=== PATIENT | female | born 1955 | race Caucasian/White ===

== ENCOUNTER → 2022-10-08 13:53 | Outpatient (BNVA) | payer MEDICARE, SELFPAY | PROVIDERS: PCP Family Medicine; Visit Provider Internal Medicine | DX: E03.8 Other specified hypothyroidism (principal); E06.3 Autoimmune thyroiditis; E04.1 Nontoxic single thyroid nodule | CPT/HCPCS: 99204 ==

== ENCOUNTER 2022-10-12 08:10 | Outpatient (CLI) | payer MEDICARE, SELFPAY ==
[2022-10-12 09:33] LABS: Thyroid Stimulating Hormone 84.02 uIU/mL (0.27-4.20)
[2022-10-13 11:30] LABS: T3 Total <25 ng/dL (76-181)
== END 2022-10-12 08:11 | disposition home or self-care (01) ==
LOC: LAB 08:13
PROVIDERS: PCP Family Medicine; Visit Provider Internal Medicine
DX: E03.8 Other specified hypothyroidism (principal); E04.1 Nontoxic single thyroid nodule; E06.3 Autoimmune thyroiditis
CPT/HCPCS: 36415; 84439; 84443; 84480

== ENCOUNTER 2022-10-26 11:46 | Outpatient (CLI) | payer MEDICARE, SELFPAY ==
[2022-10-26 13:27] LABS: Free T4 Free Thyroxine 1.26 ng/dL (0.82-1.77)
== END 2022-10-26 11:47 | disposition home or self-care (01) ==
PROVIDERS: Internal Medicine; PCP Family Medicine
DX: E03.8 Other specified hypothyroidism (principal); E04.1 Nontoxic single thyroid nodule; E06.3 Autoimmune thyroiditis
CPT/HCPCS: 36415; 84439

== ENCOUNTER → 2022-12-10 10:02 | Outpatient (BNVA) | payer MEDICARE, SELFPAY | PROVIDERS: PCP Family Medicine; Visit Provider Internal Medicine | DX: E03.8 Other specified hypothyroidism (principal); E06.3 Autoimmune thyroiditis; E04.1 Nontoxic single thyroid nodule; Z79.890 Hormone replacement therapy | CPT/HCPCS: 36415; 84439; 84443; 99214 ==

== ENCOUNTER → 2023-01-29 09:41 | Outpatient (BNVA) | payer MEDICARE, SELFPAY | PROVIDERS: PCP Family Medicine; Visit Provider Podiatrist Foot & Ankle Surgery | DX: M20.41 Other hammer toe(s) (acquired), right foot; M20.42 Other hammer toe(s) (acquired), left foot; M76.822 Posterior tibial tendinitis, left leg | CPT/HCPCS: 73630; 76536; 99204 ==

== ENCOUNTER → 2023-02-16 13:42 | Outpatient (BNVA) | payer MEDICARE, SELFPAY | PROVIDERS: PCP Family Medicine; Visit Provider Internal Medicine | DX: E03.8 Other specified hypothyroidism (principal); E06.3 Autoimmune thyroiditis; E04.1 Nontoxic single thyroid nodule; Z79.890 Hormone replacement therapy | CPT/HCPCS: 84439; 84443; 99214 ==

== ENCOUNTER 2023-03-16 10:17 | Observation (INO) | payer MEDICARE, SELFPAY ==
[2023-03-12 11:19] LABS: Basophils # 0.1 10^3/uL (0.0-0.1); Basophils % 1.3 %; Eosinophils # 0.2 10^3/uL (0.0-0.8); Eosinophils % 3.8 %; Hematocrit 41.9 % (36-47); Lymphocytes # 1.8 10^3/uL (0.8-4.8); Lymphocytes % 40.5 %; Mean Corpuscular HGB Conc 34.1 g/dL (30-55); Mean Corpuscular Hemoglobin 30.8 pg (27-33); Mean Corpuscular Volume 90.1 fl (85-98); Mean Platelet Volume 8.7 fL (7.4-10.4); Monocytes # 0.6 10^3/uL (0.2-0.9); Monocytes % 12.7 %; Neutrophils # 1.87 10^3/uL (1.8-7.7); Neutrophils % 41.7 %; Nucleated Red Blood Cells % 0 %; Platelet Count 333 10^3/cmm (157-399); Red Blood Count 4.65 10^6/uL (3.85-5.65); Red Cell Distribution Width 12.3 % (12.1-15.1); White Blood Count 4.49 10^3/uL (3.29-11.43)
--- NOTE | 2023-03-12 11:39 | ANES.PREANE2 ---
Pre-Anesthetic Assessment Height/Weight: Height 1.68 m Preop Diagnosis: Cystocele, rectocele, stress incontinence Operation Date: 03/16/23 09:45 Proposed Procedures p Anterior and posterior colporrhaphy 51308, Midurethral sling 96392, Sacrospinous fixation 29640,N81.10,N81.6,N39.3(Not Applicable) - MD nory Thakkar Posterior Repair(Not Applicable) - Abhijit Kim MD s Sling Single Incision Midurethral Sling(Not Applicable) - Abhijit Kim MD s Sacrospinous Ligament Suspension Sacrospinous Fixation(Not Applicable) - Abhijit Kim MD Familial anesthetic complications: PONV Was Beta Mendez taken within 24 hours: N/A Was Clonidine taken within 24 hours: N/A Social Alcohol and No tobacco Exam alert, oriented x 3, clear to auscultation bilaterally and regular rate & rhythm Airway Submandibular: within normal limits Cervical ROM: within normal limits Mallampati: Class II Dentition: chipped Metabolic Thyroid Disease Anesthetic Plan ASA status: 2 Anesthesia: General Other: TIVA Medications/Allergies Home Medications Medication Instructions Recorded Confirmed Last Taken Type gabapentin 100 mg capsule 100 mg PO TID 02/05/23 03/12/23 03/12/23 History levothyroxine 100 mcg tablet 100 mcg PO DAILY #90 tabs 02/16/23 03/12/23 03/12/23 Rx venlafaxine 150 mg 150 mg PO DAILY 30 days #30 caps 03/04/23 03/12/23 03/12/23 Rx capsule,extended release 24 hr zolpidem 10 mg tablet 10 mg PO .at bed PRN insomnia 30 03/04/23 03/12/23 03/11/23 Rx days #30 tabs Allergies Allergy/AdvReac Type Severity Reaction Status Date / Time sulfas Allergy Unknown Unknown Uncoded 03/12/23 10:36 REPLACED BY [facility] Anesthesia Medical History Psychiatric care Family History Father Hyperlipidemia Grandmother Hyperlipidemia Heart disease Other Brain tumor Depression Denies family history of Colon cancer Ovarian cancer Prostate cancer Diabetes Breast cancer Hypertension Uterine cancer Thyroid condition Stroke Social History Smoking and tobacco status: former smoker Data Anesthesia 03/12/23 10:50 03/12/23 10:50 Short CBC 03/12/23 Range/Units 10:50 WBC 4.49 (3.29-11.43) 10^3/uL Hgb 14.30 (11.27-16.99) g/dL Hct 41.9 (36-47) % MCV 90.1 (85-98) fl Plt Count 333 (157-399) 10^3/cmm Neut % (Auto) 41.7 % Neut # (Auto) 1.87 (1.8-7.7) 10^3/uL Cardiac Studies: No Data to Display
[2023-03-12 11:44] LABS: Alanine Aminotransferase 13 U/L (0-33); Albumin Level 4.8 g/dL (3.5-5.2); Alkaline Phosphatase 85 U/L (35-105); Aspartate Amino Transferase 16 U/L (0-32); Blood Urea Nitrogen 11 mg/dL (8-23); Calcium 9.6 mg/dL (8.5-10.5); Carbon Dioxide 25 mmol/L (22-29); Chloride 103 mmol/L (98-107); Globulin 2.3 g/dL (1.3-4.6); Glomerular Filtration Rate 99.7 mL/min (90-130); Glucose 107 mg/dL (65-115); Osmolality Calculated 286 mOsm/kg (285-295); Sodium 138 mmol/L (136-145); Total Bilirubin 0.7 mg/dL (0.15-1.2); Total Protein 7.1 g/dL (6.6-8.7)
[2023-03-12 11:46] LABS: Bilirubin Urine Neg (Negative); Blood Urine Neg (Negative); Glucose Urine UA Norm (Normal); Ketones Urine Negative (Negative); Nitrate Urine Negative (Negative); Protein Urine Neg (Negative); Urine Appearance Clear (CLEAR); Urine Color Yellow (Yellow); Urobilinogen Urine Norm (Negative); pH Urine 6 (5-7)
[2023-03-12 11:47] LABS: Add Urine Culture? No; Add Urine Microscopic? YES; Bacteria Urine TRACE /hpf; Leukocyte Esterase Urine Trace (Negative); RBC Urine 0-4 /hpf (0-2); Squamous Epithelial Cell Urine 0-4 /hpf (0-5); WBC Urine 0-4 /hpf (0-5)
[2023-03-16] VITALS (20 sets, daily range): BP systolic 97–150; BP diastolic 7–84; PULSE 54–95; RESP 7–20; TEMP 36.1–36.9; O2SAT 93–100; BMI 32.3; BMI 27.8
[2023-03-16] MEDS: scopolamine 1.5 Patch 1 PATCH TRANSDERMA (06:14)
[2023-03-16] MEDS: sodium chloride 0.9% 1,000 ML 30 ML IV (06:14)
[2023-03-16] MEDS: vancomycin 1,000 MG in sodium chloride 0.9% 250 ML 250 MG IV (06:15)
[2023-03-16] MEDS: sodium chloride 0.9% 500 ML IV (06:16)
[2023-03-16] MEDS: famotidine 20 mg/2 mL INJ IVP (06:36)
[2023-03-16] MEDS: midazolam 1 mg/mL INJ 2 mL 2 MG IVP (06:45)
--- NOTE | 2023-03-16 06:56 | W.PM.OPSUD ---
Surgery/Procedure H&P Update DATE OF PROCEDURE: March 16, 2023 DATE H&P PERFORMED: 03/11/23 H&P UPDATE INFORMATION: I have reviewed H&P completed within last 30 days, I have examined patient prior to procedure and No changes to prior documentation PREOP DIAGNOSIS: Cystocele, rectocele, stress incontinence PLANNED PROCEDURE: Operation Date: 03/16/23 07:00 Proposed Procedures p Anterior and posterior colporrhaphy 21916, Midurethral sling 85215, Sacrospinous fixation 62244,N81.10,N81.6,N39.3(Not Applicable) - Abhijit Kim MD s Posterior Repair(Not Applicable) - Abhijit Kim MD s Sling Single Incision Midurethral Sling(Not Applicable) - Abhijit Kim MD s Sacrospinous Ligament Suspension Sacrospinous Fixation(Not Applicable) - Abhijit Kim MD
--- NOTE | 2023-03-16 07:01 | P.ANESUD_ITS ---
Pre-Anesthetic Update Pre-Anesthetic Assessment: Date of Surgery/Procedure: 03/16/23 Preop Afshan gnosis: Cystocele, rectocele, stress incontinence Proposed Procedure: Operation Date: 03/16/23 07:00 Proposed Procedures p Anterior and posterior colporrhaphy 17556, Midurethral sling 67070, Sacrospinous fixation 16035,N81.10,N81.6,N39.3(Not Applicable) - Abhijit Kim MD s Posterior Repair(Not Applicable) - Abhijit Kim MD s Sling Single Incision Midurethral Sling(Not Applicable) - Abhijit Kim MD s Sacrospinous Ligament Suspension Sacrospinous Fixation(Not Applicable) - Abhijit Kim MD Any changes to Pre-Anesthetic Assessment?: No Last Intake: Intake Last Liquid Date 03/15/23 Last Liquid Time 19:00 Last Solid Date 03/15/23 Last Solid Time 19:00 Vitals: Temperature 97 F L 03/16/23 05:55 Temperature Source Temporal Artery S can 03/16/23 05:55 Pulse Rate 95 03/16/23 05:55 Respiratory Rate 18 03/16/23 05:55 Blood Pressure 150/84 03/16/23 05:55 Blood Pressure Nancy n 106 03/16/23 05:55 Pulse Oximetry 95 03/16/23 05:55 Oxygen Delivery Me thod Room Air 03/16/23 06:07 Exam: Pre-Anes Outpt Exam: alert, oriented x 3, clear to auscultation bilaterally and regular rate & rhythm Cardiac Studies: No Data to Display
[2023-03-16] MEDS: lidocaine-epi 2% 20 mL INJ INJECTION (07:56)
--- NOTE | 2023-03-16 09:20 | PM.OP ---
Operative Report Date of procedure: March 16, 2023 Pre-op diagnosis: Cystocele, stress urinary incontinence Rectocele Procedure done: Anterior colporrhaphy augmented with allograft. Single incision mid urethral sling. Posterior colporrhaphy. Cystoscopy Specimens removed/disposition: None Surgeon: Abhijit Kim MD Estimated blood loss (mL): 75 IV fluids (mL): 1,200 Urine output (mL): 100 Findings: Cystocele and rectocele Procedure: After obtaining informed consent, the patient was taken to the operating room and placed in the supine position, given general anesthesia, and prepped and draped in sterile fashion. The abdomen, vulva and vagina were prepped and draped in a sterile manner. A time out procedure was performed. The anterior vaginal mucosa beneath the midurethra was infiltrated with 2% lidocaine with epinephrine. A vertical midline incision was made beneath the midurethra, nearly 1.5 cm length. Careful submucosal dissection was performed bilaterally up to the interior portion of the inferior pubic ramus. The insertion of adductor longus tendon on the patient?s pubic ramus was identified as reference land dolores. Palpated the notch along the internal edge of ischiopubic ramus where the adductor longus tendon and the inferior pubic ramus meet. The Altis single incision sling (SIS) was selected. Then the needle of the SIS inserted aiming at the location of this notch. One of the integrated self-fixating tips place onto the needle by sliding it over the end of the needle. The needle/sling assembly was inserted toward the location of identified reference notch making sure that the flat of the handle is perpendicular to the desired path. The needle was tracked along the posterior surface of the ischiopubic ramus until the midline dolores on the mesh is approximately at the midline position under the urethra. The needle was removed and the same was repeated on the contralateral side until the appropriate sling tension under the urethra was achieved ensuring that the mesh lays flat. The needle was removed and vaginal incision was closed in a running interlocking fashion with 2-0 Vicryl. The vaginal mucosa was then injected in the midline with normal saline. The vaginal mucosa was scored in the midline with the Bovie approximately 1 cm medial to the urethral meatus to 1 cm distal to the cervix. This vaginal mucosa was then undermined and then incised in the midline with the Metzenbaum scissors. The lateral aspects of the vaginal mucosa were then grasped with the Allis clamps and the vaginal mucosa was then dissected off the underlying fascia with the Metzenbaum scissors. Again, there was noted to be quite a bit of oozing at the incision, which was controlled with cautery. After adequate dissection was performed, bilaterally. A Coloplast dermis allograft modified at time of application to fit spacea, 3 x 3 cm piece . The allograft was placed in front of cystocele ready to be implanted facing the vagina mucosa. Suture is placed at distal end of graft and placed towards vaginal cuff. Final suture is placed on proximal portion of the graft to complete the placement overlying the bladder. Then Interrupted vertical mattress sutures of 0 Vicryl were used to elevate the cystocele superiorly. The excessive vaginal mucosa was then trimmed with the Metzenbaum scissors and the vaginal mucosa was then reapproximated in the running interlocking fashion with 2-0 Vicryl. A 2% lidocaine with epinephrine solution was infiltrated under the posterior vaginal mucosa midline and into the perineal body. A transverse incision was cut in the perineum. The posterior vaginal wall was opened vertically and midline up to the apex of the rectocele. The cut edges were held and splayed laterally with a series of Allis clamps. The open vaginal mucosa was then dissected laterally with a combination of sharp and blunt dissection, exposing the perirectal fascia. The perirectal fascia was then reapproximated with interrupted #2-0 Vicryl sutures to draw the lateral folds together and tuck the rectocele back. Deep interrupted sutures of #0 Vicryl were used to reapproximate the fibers of the levator ani muscles. The excess vaginal mucosa was trimmed. The posterior vaginal wall was closed with a running locked #0 Vicryl to the hymenal tags. The superficial perineal muscles were closed with running unlocked #0 Vicryl and the perineal skin was closed with running subcuticular #2-0 Vicryl. Then the Agarwal catheter was removed and cystoscope was inserted. The bladder was filled with sterile water. Complete evaluation of the bladder mucosa was performed noting no lacerations, dimpling, tears, bleeding of the mucosa or muscular layers. Both ureteral orifices were identified. Prompt excretion of urine from both ureteral orifices was noted. Cystoscope was withdrawn. The Agarwal catheter was replaced. Excellent hemostasis was obtained. Sponge, lap, needle, and instrument counts were correct times three. The patient was taken to the recovery room, awake and in stable condition.
[2023-03-16] MEDS: fentaNYL 50 mcg/mL INJ 2mL IVP (09:30)
--- NOTE | 2023-03-16 10:00 | ANE.PACU2 ---
Inpatient post-anesthesia follow up: Airway intact: Yes Vital signs: Temperature 98.2 F Pulse Rate 69 Respiratory Rate 9 Blood Pressure 140/77 Pulse Oximetry 99 Oxygen Delivery Me thod Room Air Oxygen Flow Rate 6 Fraction of Inspir ed Oxygen Hydration adequate: Yes Nausea and vomiting: No Pain level: 1 Mental status: Baseline
[2023-03-16] MEDS: HYDROcodone-acetaminophen 5-325 mg Tablet PO ×2 (10:39→16:23)
[2023-03-16] MEDS: venlafaxine ER (24HR) 150 mg Capsule PO (12:34)
[2023-03-16] MEDS: levothyroxine 100 mcg Tablet PO (12:34)
[2023-03-16] MEDS: dextrose 5%-lactated ringers 1,000 ML 125 ML IV (14:54)
[2023-03-16] MEDS: gabapentin 100 mg Capsule PO (15:09)
[2023-03-16] MEDS: ketorolac 30 mg/mL INJ IVP ×2 (16:22→22:28)
[2023-03-16] MEDS: docusate sodium 100 mg Capsule PO (16:23)
--- NOTE | 2023-03-16 17:53 | PC.NURSE ---
PATIENT'S O2 SAT DROPS DOWN INTO THE MID TO UPPER 80'S WHEN SHE FALLS AND ASLEEP, SO THIS BREAD ROOM HAND PLACED HER ON O2 AT 2 L PER NASAL CANNULA. PT STATES DOES HAVE A CPAP MACHINE AT HOME, SHE DID NOT BRING IT WITH HER SO TOLD THEM THAT WE MAY LEAVE HER ON O2 THIS EVENING
[2023-03-17] MEDS: ketorolac 30 mg/mL INJ IVP (04:12)
[2023-03-17 04:24] VITALS: BP 106/55; PULSE 71; RESP 16; TEMP 36.7; O2SAT 98
[2023-03-17 06:18] LABS: Hematocrit 32.8 % (36-47); Mean Corpuscular HGB Conc 32.9 g/dL (30-55); Mean Corpuscular Hemoglobin 30.5 pg (27-33); Mean Corpuscular Volume 92.7 fl (85-98); Mean Platelet Volume 8.9 fL (7.4-10.4); Platelet Count 246 10^3/cmm (157-399); Red Blood Count 3.54 10^6/uL (3.85-5.65); Red Cell Distribution Width 12.2 % (12.1-15.1); White Blood Count 6.09 10^3/uL (3.29-11.43)
--- NOTE | 2023-03-17 07:06 | PC.NURSE ---
patient voided 200ml at this time, bladder scan with 37ml left in bladder after void.
[2023-03-17] MEDS: docusate sodium 100 mg Capsule PO (09:36)
[2023-03-17] MEDS: ibuprofen 800 mg tablet PO (09:36)
[2023-03-17 09:39] VITALS: BP 94/51; PULSE 76; RESP 16; TEMP 36.9; O2SAT 95
--- NOTE | 2023-03-17 09:43 | P.DS_ITS ---
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 Sanchez 67-year-old female with a history of cystocele and rectocele. Admitted for planned anterior and posterior colporrhaphy single incision mid urethral sling. An anterior colporrhaphy augmented with allograft with single incision mid urethral sling and posterior colporrhaphy were performed without complications. Overnight observation was uneventful. Tolerating diet well. Ambulating without difficulty. PVR within normal limits. Counseled regarding pelvic rest for 6 weeks (no sex, no tampons, no vaginal douches). Return to the emergency room if any fever, increased bleeding or pain. Physical Exam Narrative: GA: Alert and oriented ?3. HEENT: WNL. Heart: Regular rate and rhythm. Lungs: Clear to auscultation bilaterally. Abdomen: Bowel sounds present, nontender BUSINESS SERVICES OFFICER: Spotting bleeding. Extremities: No edema, no cyanosis, no calves pain. Urinary Catheter Management: Agarwal: Cath Placed During This Visit: yes, but has since been removed by the nurse Reason for Continuing Indwelling Catheter: Decision to DC Catheter Urinary Catheter Date of Insertion: 03/16/23 Urinary Catheter Time of Insertion: 07:30 Date Urinary Catheter Removed: 03/17/23 Time Urinary Catheter Discontinued: 05:18 History History History 6 Term 2 0 Miscarriages/Ectopic 4 Living Children 2 Discharge Data Studies Completed and Pending Laboratory Results WBC 6.09 10^3/uL (3.29-11.43) 03/17/23 05:15 RBC 3.54 10^6/uL (3.85-5.65) L 03/17/23 05:15 Hgb 10.80 g/dL (11.27-16.99) L 03/17/23 05:15 Hct 32.8 % (36-47) L 03/17/23 05:15 MCV 92.7 fl (85-98) 03/17/23 05:15 MCH 30.5 pg (27-33) 03/17/23 05:15 MCHC 32.9 g/dL (30-55) 03/17/23 05:15 RDW 12.2 % (12.1-15.1) 03/17/23 05:15 Plt Count 246 10^3/cmm (157-399) 03/17/23 05:15 MPV 8.9 fL (7.4-10.4) 03/17/23 05:15 Neut % (Auto) 41.7 % 03/12/23 10:50 Lymph % (Auto) 40.5 % 03/12/23 10:50 [place] % (Auto) 12.7 % 03/12/23 10:50 Eos % (Auto) 3.8 % 03/12/23 10:50 Baso % (Auto) 1.3 % 03/12/23 10:50 Neut # (Auto) 1.87 10^3/uL (1.8-7.7) 03/12/23 10:50 Lymph # (Auto) 1.8 10^3/uL (0.8-4.8) 03/12/23 10:50 [place] # (Auto) 0.6 10^3/uL (0.2-0.9) 03/12/23 10:50 Eos # (Auto) 0.2 10^3/uL (0.0-0.8) 03/12/23 10:50 Baso # (Auto) 0.1 10^3/uL (0.0-0.1) 03/12/23 10:50 Nucleated RBC % (auto) 0 % 03/12/23 10:50 Nucleated RBCs # 0.0 /100WBC 03/12/23 10:50 Sodium 138 mmol/L (136-145) 03/12/23 10:50 Potassium 4.0 mmol/L (3.5-5.1) 03/12/23 10:50 Chloride 103 mmol/L (98-107) 03/12/23 10:50 Carbon Dioxide 25 mmol/L (22-29) 03/12/23 10:50 Anion Gap 14.0 (5-19) 03/12/23 10:50 BUN 11 mg/dL (8-23) 03/12/23 10:50 Creatinine 0.6 mg/dL (0.5-0.9) 03/12/23 10:50 GFR Calculation 99.7 mL/min (90-130) 03/12/23 10:50 Glucose 107 mg/dL (65-115) 03/12/23 10:50 Calculated Osmolality 286 mOsm/kg (285-295) 03/12/23 10:50 Calcium 9.6 mg/dL (8.5-10.5) 03/12/23 10:50 Total Bilirubin 0.7 mg/dL (0.15-1.2) 03/12/23 10:50 AST 16 U/L (0-32) 03/12/23 10:50 ALT 13 U/L (0-33) 03/12/23 10:50 Alkaline Phosphatase 85 U/L (35-105) 03/12/23 10:50 Total Protein 7.1 g/dL (6.6-8.7) 03/12/23 10:50 Albumin 4.8 g/dL (3.5-5.2) 03/12/23 10:50 Globulin 2.3 g/dL (1.3-4.6) 03/12/23 10:50 Urine Color Yellow (Yellow) 03/12/23 10:47 Urine Appearance Clear (CLEAR) 03/12/23 10:47 Urine pH 6 (5-7) 03/12/23 10:47 Ur Specific [place] 1.010 (1.005-1.030) 03/12/23 10:47 Urine Protein Neg (Negative) 03/12/23 10:47 Urine Glucose (UA) Norm (Normal) 03/12/23 10:47 Urine Ketones Negative (Negative) 03/12/23 10:47 Urine Blood Neg (Negative) 03/12/23 10:47 Urine Nitrate Negative (Negative) 03/12/23 10:47 Urine Bilirubin Neg (Negative) 03/12/23 10:47 Urine Urobilinogen Norm mg/dL (Negative) 03/12/23 10:47 Ur Leukocyte Esterase Trace (Negative) H 03/12/23 10:47 Urine RBC 0-4 /hpf (0-2) H 03/12/23 10:47 Urine WBC 0-4 /hpf (0-5) H 03/12/23 10:47 Ur Squamous Epith Cells 0-4 /hpf (0-5) H 03/12/23 10:47 Amorphous Sediment Not Reportable 03/12/23 10:47 Urine Bacteria Trace /hpf (NONE) 03/12/23 10:47 Blood Type A Positive 03/16/23 06:26 Rho(D) Type Positive 03/16/23 06:26 Antibody Screen Negative 03/16/23 06:26 Vitals Last Vital Signs Temp 98.5 F 03/17/23 09:39 Pulse 76 03/17/23 09:39 Resp 16 03/17/23 09:39 BP 94/51 03/17/23 09:39 Pulse Ox 95 03/17/23 09:39 O2 Del Method Room Air 03/17/23 09:39 O2 Flow Rate 2 03/17/23 04:24 Discharge Plan Discharge Patient Disposition: Home Condition: Stable Prescriptions: New hydrocodone-acetaminophen 5-325 mg tablet 1 tab PO Q4H PRN (Reason: pain) Qty: 20 0RF acetaminophen 325 mg capsule 325 mg PO Q4H PRN (Reason: fever or postoperative pain) Qty: 60 0RF ibuprofen 800 mg tablet 800 mg PO TID PRN (Reason: pain) Qty: 60 0RF Continued levothyroxine 100 mcg tablet 100 mcg PO DAILY Qty: 90 0RF Rx Instructions: 1 tablet Wednesday thru Wednesday and half a tablet on Wednesday venlafaxine 150 mg capsule,extended release 24hr 150 mg PO DAILY 30 Days Qty: 30 3RF zolpidem 10 mg tablet 10 mg PO .at bed PRN (Reason: insomnia) 30 Days Qty: 30 3RF gabapentin 100 mg capsule 100 mg PO TID Discharge Orders: Discharge Order (Routine); Ordered 03/17/23 Ordered By: Abhijit Kim Referrals: Abhijit Kim MD [Physician] - 2 weeks Discharge Diet: GI Soft and Soft Mechanical Discharge Activity: Limit activity as instructed Patient Instructions: Hydrocodone/Acetaminophen (By mouth), Ibuprofen (By mouth), Anterior Vaginal Repair (GEN), OB Discharge Report, OB Food/Drug Interaction Guide, Opioid Safety, Posterior Vaginal Repair (GEN), Bladder Sling for Women (GEN) Activity Restrictions/Additional Instructions: 1. Please call [facility] on next working day to make your post-operative appointment in 2 weeks. 2. Please stay home until you come back to the clinic on first post- hospatilization check up. 3. Please follow instructions on your medications CAREFULLY. 4. If you have abdominal incision, do not cover it unless dressing is necessary because of drainage. OK to shower, but avoid bath. Leave steri-strips until they fall off. If they are still on one week after surgery, you may remove them. 5. If you had vaginal surgery or vaginal repair, Dr. Kim may instruct you to take SITZ bath. 6. Yellow, blood tinged odorous vaginal discharge is usually normal after hysterectomy or vaginal surgeries. 7. No SEXUAL INTERCOURSE, tampons, or douches until you are completely released from the post-operative care. 8. Avoid constipation by eating right and maybe using some Metamucil or Milk of Magnesia. 9. All prescription refills are given during the working hours. Please do no wait till it runs out. Call the clinic at [phone] before your medication runs out. The clinic will get in touch with your doctor to prescribe medications if necessary. 10. Please remain within 40 mile radius from our hospital because emergencies do happen now and then during the post-operative period. 11. If you have stairs at home, take one step at a time slowly and minimize the number of trips. It helps to stay in one floor for the next few days. No lifting except what you can lift by one hand until you are released from the post-operative care. 12. Driving is discouraged until you are well healed. It may be 3-4 weeks before you feel strong enough to drive. You should be able to turn and look through the rear window without pain and you should be able to push the brake pedal very hard without pain before you drive. No fast rules, but SAFETY should be your primary concern. DO NOT drive if you are on sedating medications such as narcotics. 13. Call the clinic (during working hours) to make urgent appointment or go to the Emergency room, if any of the following occurs: i. Vaginal bleeding becomes heavy, more than a period. ii. Incision becomes red and sore, or drains pus. iii. Your TEMPERATURE is over 100.4F or you have chill. iv. IV site becomes red and swollen (a little ``knot?? is usually OK) v. Persistent nausea and vomiting vi. Persistent constipation or diarrhea vii. Rash or allergic reaction to medications. Discharge Attestations WASH OIL PUMP OPERATOR HELPER Time Spent in Discharge Care*: greater than 30 min Coding Level of Care Code Acute Code for Chg Fwd Diagnoses
[2023-03-17 10:00] VITALS: BP 94/51; PULSE 76; RESP 16; TEMP 36.9; O2SAT 95
== END 2023-03-17 10:18 | disposition home or self-care (01) ==
LOC: OBGYN 16:00
PROVIDERS: Admitting Provider Obstetrics & Gynecology; PCP Family Medicine; Visit Provider Obstetrics & Gynecology
PROC: 0JQC0ZZ Repair Pelvic Region Subcutaneous Tissue and Fascia, Open Approach (ICD-10-PCS; CPT 57240; principal; 2023-03-16 07:00)
PROC: (CPT 57250; 2023-03-16 07:00)
PROC: (CPT 57288; 2023-03-16 07:00)
PROC: (CPT 57282; 2023-03-16 07:00)
DX: N81.10 Cystocele, unspecified (principal); N39.3 Stress incontinence (female) (male); N81.6 Rectocele; Z87.891 Personal history of nicotine dependence
CPT/HCPCS: 57260; 57267; 57288; 36415; 51798; 80053; 81001; 85025; 85027; 86850; 86900; 96374; 96376; C1713; C1762; G0378; J1100; J1885; J2250; J2405; J2704; J3010; J3370; J3490; J7030; J7040; J7050; J7121

== ENCOUNTER 2023-07-16 13:38 | Outpatient (CLI) | payer MEDICARE, SELFPAY ==
--- NOTE | 2023-07-16 13:49 | XR_ITS ---
WS: [id number] Exam: XR finger RT min 2V [id number] Date/Time of Exam: 07/16/2023 2:07 PM Reason For Exam: FINGER INFECTION/HX OF HAND SURGERY The RIGHT fifth finger is targeted for radiographic evaluation. There is bony fusion of the PIP joint. Degenerative change in the DIP joint and the MP joint of the fifth finger. Mild deformity of the finger. No soft tissue foreign bodies are seen. IMPRESSION: 1. No fracture or dislocation. 2. Bony fusion of the PIP joint and degenerative changes.
== END 2023-07-16 13:39 | disposition home or self-care (01) ==
PROVIDERS: PCP Family Medicine; Visit Provider Family Medicine
DX: L08.9 Local infection of the skin and subcutaneous tissue, unspecified (principal); Z98.890 Other specified postprocedural states
CPT/HCPCS: 73140

== ENCOUNTER → 2023-08-12 09:35 | Outpatient (BNVA) | payer MEDICARE, SELFPAY | PROVIDERS: PCP Family Medicine; Visit Provider Internal Medicine | DX: E03.8 Other specified hypothyroidism (principal); E06.3 Autoimmune thyroiditis; E04.1 Nontoxic single thyroid nodule; Z79.890 Hormone replacement therapy | CPT/HCPCS: 99214 ==

== ENCOUNTER 2023-08-17 13:51 | Outpatient (CLI) | payer MEDICARE, SELFPAY ==
[2023-08-17 14:45] LABS: Free T4 Free Thyroxine 1.65 ng/dL (0.82-1.77); Thyroid Stimulating Hormone 0.09 uIU/mL (0.27-4.20)
== END 2023-08-17 13:52 | disposition home or self-care (01) ==
LOC: LAB 13:52
PROVIDERS: PCP Family Medicine; Visit Provider Internal Medicine
DX: E04.1 Nontoxic single thyroid nodule (principal)
CPT/HCPCS: 36415; 84439; 84443

== ENCOUNTER → 2023-10-25 10:50 | Outpatient (BNVA) | payer MEDICARE, SELFPAY | PROVIDERS: PCP Family Medicine; Visit Provider Internal Medicine | DX: E03.8 Other specified hypothyroidism (principal); E06.3 Autoimmune thyroiditis; E04.1 Nontoxic single thyroid nodule; Z79.890 Hormone replacement therapy | CPT/HCPCS: 36415; 84439; 84443; 99214 ==

== ENCOUNTER → 2024-03-13 11:15 | Outpatient (BNVA) | payer MEDICARE, SELFPAY | PROVIDERS: PCP Family Medicine; Visit Provider Internal Medicine | DX: E03.8 Other specified hypothyroidism (principal); E06.3 Autoimmune thyroiditis; E04.1 Nontoxic single thyroid nodule; Z79.890 Hormone replacement therapy | CPT/HCPCS: 36415; 84439; 84443; 99214 ==

== ENCOUNTER 2024-10-09 10:29 | Outpatient (CLI) | payer MEDICARE, SELFPAY ==
[2024-10-09 11:32] LABS: Free T4 Free Thyroxine 1.15 ng/dL (0.82-1.77); Thyroid Stimulating Hormone 3.62 uIU/mL (0.27-4.20)
== END 2024-10-09 10:30 | disposition home or self-care (01) ==
LOC: LAB 10:31
PROVIDERS: PCP Nurse Practitioner Family; Visit Provider Internal Medicine
DX: E06.3 Autoimmune thyroiditis (principal); E03.8 Other specified hypothyroidism
CPT/HCPCS: 36415; 84439; 84443

== ENCOUNTER → 2024-10-12 09:50 | Outpatient (BNVA) | payer MEDICARE, SELFPAY | PROVIDERS: PCP Family Medicine; Visit Provider Internal Medicine | DX: E03.8 Other specified hypothyroidism (principal); E06.3 Autoimmune thyroiditis; E04.1 Nontoxic single thyroid nodule | CPT/HCPCS: 99214 ==

== ENCOUNTER → 2025-04-17 14:54 | Outpatient (BNVA) | payer MEDICARE, SELFPAY | PROVIDERS: PCP Family Medicine; Visit Provider Internal Medicine Endocrinology, Diabetes & Metabolism | DX: E06.3 Autoimmune thyroiditis (principal); E03.8 Other specified hypothyroidism; E04.1 Nontoxic single thyroid nodule | CPT/HCPCS: 99213 ==

== ENCOUNTER 2025-05-21 14:44 | Outpatient (CLI) | payer MEDICARE, SELFPAY ==
[2025-05-21 15:50] LABS: Thyroid Stimulating Hormone 8.88 uIU/mL (0.27-4.20)
== END 2025-05-21 14:45 | disposition home or self-care (01) ==
PROVIDERS: Internal Medicine Endocrinology, Diabetes & Metabolism; PCP Family Medicine; Visit Provider Internal Medicine
DX: E03.8 Other specified hypothyroidism (principal); E06.3 Autoimmune thyroiditis; E04.1 Nontoxic single thyroid nodule
CPT/HCPCS: 36415; 84443; 86364